=== PATIENT | male | born 1970 | race Caucasian/White ===

== ENCOUNTER 2017-03-23 07:00 | Outpatient (CLI) | payer BC ==
[2017-03-23 12:17] LABS: CHOL/HDL RATIO 3.8 (<5.0); CHOLESTEROL 199 mg/dL; HDL CHOLESTEROL 52 mg/dL; LDL/HDL RATIO 2.5 (<3.6); TRIGLYCERIDES 86 mg/dL; VLDL CHOLESTEROL 17 mg/dL
== END 2017-03-23 07:01 | disposition home or self-care (01) ==
LOC: LAB.F 07:00
PROVIDERS: ATTEND Internal Medicine
DX: E78.5 Hyperlipidemia, unspecified (principal)
CPT/HCPCS: 36415; 80061